=== PATIENT | male | born 1960 | race Caucasian/White ===

== ENCOUNTER 2018-03-29 08:45 | Day surgery (SDC) | END 2018-03-29 14:50 | disposition home or self-care (01) ==

== ENCOUNTER 2018-09-12 10:30 | Inpatient (IN) | payer OTHER ==
[~2018-09-12] VITALS: Ht 182.9 cm; Wt 78.8 kg
[~2018-09-12 10:30] MED LIST: BACLOFEN; CLONAZEPAM
[2018-09-12] MEDS ORDERED: LEVE-5 PO (12:58)
[2018-09-12] MEDS ORDERED: LEVETIRACETAM 1000 MG (PMX) 100 ML IVPB ONE (13:00)
--- NOTE | 2018-09-12 13:02 | ERD ---
ER Documentation Chief Complaint Chief Complaint ABHISHEK LAFLEUR OF [place]. ORAL TRAUMA. NON VERBAL HPI 57-year-old male transferred to the emergency department by paramedics after a loss of consciousness episode. Patient is a poor historian with limited insight into his presentation. According to the paramedics, there was a brief loss of consciousness episode. There is no witnessed seizure activity, but the patient had oral trauma and incontinence. He appeared to be postictal and was transported to the emergency department. There is no history of headache or any other symptoms prior to the event. I have reviewed the drafter chief design pre-hospital care. Pre-hospital vital signs were reviewed. Pre-hospital diagnostic tests were reviewed. Upon arrival, patient is unable to provide any further history. ROS All systems reviewed and are negative except as per history of present illness. 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 EOMI. There is no scleral icterus. Oral trauma is noted NECK: C-spine is soft and supple, there is no meningismus. There is no cervical lymphadenopathy. LUNGS: Clear to auscultation bilaterally. There are no rales, wheezes or rhonchi. HEART: Regular rate and rhythm, no murmurs, clicks, rubs or gallops. ABDOMEN: Soft, non-tender, non-distended. There are bowel sounds in all four quadrants. No rebound or guarding. EXTREMITIES: No edema, cyanosis or clubbing NEURO: Patient is awake but postictal. He is slow to respond with limited insight. Pupils are midrange, equal round and reactive to light. Patient has left upper extremity and lower extremity weakness consistent with a previous stroke that he has had as per his records. SKIN: There is no apparent rash or petechiae. HEME/LYMPHATIC: There is no evidence of excessive bruising or lymphedema. PSYCHIATRIC: The patient does not appear anxious or depressed. Appears postictal Result Diagram: 09/12/18 1055 09/12/18 1055 Results 24 hrs Laboratory Tests Test 09/12/18 10:55 09/12/18 10:57 White Blood Count 10.0 10^3/ul Red Blood Count 5.85 10^6/ul Hemoglobin 18.3 g/dl Hematocrit 55.4 % Mean Corpuscular Volume 94.7 fl Mean Corpuscular Hemoglobin 31.3 pg Mean Corpuscular Hemoglobin Concent 33.0 g/dl Red Cell Distribution Width 12.3 % Platelet Count 270 10^3/UL Mean Platelet Volume 9.4 fl Immature Granulocytes % 0.300 % Neutrophils % 85.3 % Lymphocytes % 7.7 % Monocytes % 6.4 % Eosinophils % 0.1 % Basophils % 0.2 % Nucleated Red Blood Cells % 0.0 /100WBC Immature Granulocytes # 0.030 10^3/ul Neutrophils # 8.6 10^3/ul Lymphocytes # 0.8 10^3/ul Monocytes # 0.6 10^3/ul Eosinophils # 0.0 10^3/ul Basophils # 0.0 10^3/ul Nucleated Red Blood Cells # 0.0 10^3/ul Sodium Level 144 mmol/L Potassium Level 3.8 mmol/L Chloride Level 104 mmol/L Carbon Dioxide Level 26 mmol/L Anion Gap 14 Blood Urea Nitrogen 12 mg/dl Creatinine 0.84 mg/dl Est Glomerular Filtrat Rate mL/min > 60 mL/min Glucose Level 106 mg/dl Calcium Level 10.1 mg/dl Bedside Glucose 98 mg/dL Current Medications Medications Dose Sig/Sophie Start Time Status Last (Trade) Ordered Route PRN Stop Time Admin Dose Reason Admin 100 ml @ ONCE ONCE 09/12/18 Levetiracetam 400 mls/hr IVPB 13:00 09/12/18 13:14 Procedures/MDM Patient was taken to a room, seen and evaluated. Comfort measures were initiated. Diagnostic tests were ordered and reviewed. 3 LEAD RHYTHM STRIP: Normal sinus rhythm without ectopy RADIOLOGY: Reviewed with the radiologist REEVALUATION: 1300: Upon reevaluation, patient is now more awake but with no significant insight. He continues to have his left upper extremity weakness consistent with his previous stroke as per his documentation from his care facility. There are no new neurologic symptoms appreciated. MEDICAL DECISION MAKIN-year-old male presents after what appears to be a seizure. He does have a history of a previous stroke which would be the focus for the seizure. At this time, he appears to be back to his baseline neurologic state with no further seizure activity after an observation time of approximately 1 hour. Overall, patient otherwise appears to be stable with no other indications of other high-risk concerns and seems appropriate for discharge. Departure Diagnosis: Primary Impression: Seizure Condition: Stable Patient Instructions: Seizure, New Onset, Unk Cause [Adult] Additional Instructions: See your doctor for follow-up as discussed. Take a copy of your test results, if appropriate, to this follow-up visit. See your doctor or return here if your symptoms do not improve as expected. At any time, please return to the emergency department for any change or worsening in her symptoms. LAKEISHA ELISE Sep 12, 2018 13:02
[2018-09-12] MEDS ORDERED: ENALAPRILAT 1.25 MG INJ IV ONE (15:00)
[2018-09-12] MEDS ORDERED: LORAZEPAM 2 MG INJ IV ONE (16:00)
[2018-09-12] MEDS ORDERED: SODIUM CHLORIDE 0.9% 1L BAG IV* STA (16:44)
[2018-09-12] MEDS ORDERED: VANCOMYCIN 1 GM (PMX) 250 ML IVPB ONE (17:00)
[2018-09-12] MEDS ORDERED: CEFEPIME 1GM/50 ML (PMX) 50 ML IVPB ONE (17:00)
[2018-09-12] MEDS ORDERED: IBUPROFEN 600 MG TAB PO ONE (17:00)
[2018-09-12] MEDS ORDERED: BACL10TA PO (17:07)
[2018-09-12] MEDS ORDERED: VANCOMYCIN IV PER PHARMACY XX SCH (18:00)
[2018-09-12] MEDS ORDERED: LORAZEPAM 2 MG INJ IV PRN (18:00)
[2018-09-12] MEDS ORDERED: NACL 0.9% 3 ML SYG IV SCH (18:00)
[2018-09-12] MEDS ORDERED: ONDANSETRON 4 MG INJ IV PRN (18:00)
[2018-09-12] MEDS ORDERED: LABETALOL HCL 20MG INJ IV PRN (18:30)
--- NOTE | 2018-09-12 18:30 | HP ---
Date/Time of Note Date/Time of Note DATE: 09/12/18 TIME: 18:30 Assessment/Plan VTE Prophylaxis Pharmacological prophylaxis: other Lines/Catheters IV [facility]from [facility] Saline Lock Assessment/Plan Hospital Course Patient is a male with a past medical history significant for CVA with residual left-sided deficit, Crohn's, being wheelchair-bound who presents to [facility] after being sent by his assisted living facility after being found down, altered, with his tongue cut and mild bleeding from the mouth. Patient originally was assessed by ER physician diagnosed with likely new onset seizure secondary to his prior CVA and was about to be discharged when lactic acid was elevated as well as a fever. Currently patient is not consistent with what the assisted living facility states, according to living facility, patient is alert and oriented and able to take care of himself for the most part, he does have a left-sided deficit but able to we will him self it is wheelchair, it is unknown at this time if the left-sided deficit included a mild left upper arm deficit and not just the leg. Patient denies any history of seizure and he is able to answer some questions somewhat. Patient cannot keep his concentration for quite some time. Patient cannot accurately explain what exactly happened according to assisted living facility staff last known well time was last night. Patient currently denies any chest pain, shortness of breath however HPI is limited as patient is still mildly altered. Objective Physical exam General: Patient is laying in bed and answers questions very slowly and intermittently Mentation: Patient is alert and oriented to self Head: Normocephalic atraumatic Eyes: EOMI, pupils reactive to light Neck: Supple, nontender, midline Respiratory: Clear to auscultation bilaterally Cardiovascular: regular rate, no obvious murmurs Gastrointestinal: non-tender to palpation, bowel sounds heard. Neurological: Left upper extremity is contracted however is easily straightened but returns to the contracted state, left lower extremity has minimal movement but there is some movement in the toes with sensation. Right upper extremity and right lower extremity have full movement and sensation Skin: No new skin lesions, Assessment and plan Acute encephalopathy -The differential is extremely wide as there appears to be limited history, seizure versus CVA versus dehydration versus UTI as UA has not been collected versus other infectious sources -Patient's hemoglobin is consistent with volume contraction, give IV fluids -IV antibiotics broad-spectrum for fever and lactic acid elevation -CT negative for acute CVA, MRI pending -Keppra on board for possible seizure with Ativan as needed, neurology consulted, -Blood cultures pending -UA pending -Drug screen pending -EEG pending Left upper extremity and left lower extremity weakness and contraction of the upper extremity -According to staff at assisted living facility, patient does have a left-sided deficit however it is unknown at this time if the left-sided deficit includes the upper extremity, it is known patient is in wheelchair and is able to we will him self around so doubt left upper extremity contracture is chronic however it may also have a possible chronic nature as patient's only medication from the assisted living facility was baclofen. -We will need to speak with patient more once he is less encephalopathic -CT negative for acute CVA -MRI pending Syncope -Patient found down by staff at living facility,, unknown true downtime -CT negative for acute issues, old CVA, MRI pending -Echocardiogram -Carotid ultrasound Sepsis, unknown source, possible UTI -Broad-spectrum antibiotic -Blood cultures -IV fluids Elevated hemoglobin -Possible volume contraction due to volume depletion -Monitor labs in a.m. Questionable seizure -This may be the culprit however unknown -Neurology consulted -Continue Keppra for now -Patient was not on Keppra at the assisted living facility Disposition -There are many unknown and uncertain questions at this time, will approach everything in a broad fashion and narrow down treatment as more information arises. Monitor closely on telemetry, patient is n.p.o. at this time as his mentation is not completely certain. Result Diagram: 09/12/18 1055 09/12/18 1055 Results 24hrs Laboratory Tests Test 09/12/18 10:55 09/12/18 10:57 09/12/18 17:04 White Blood Count 10.0 Red Blood Count 5.85 Hemoglobin 18.3 H Hematocrit 55.4 H Mean Corpuscular Volume 94.7 Mean Corpuscular Hemoglobin 31.3 Mean Corpuscular Hemoglobin Concent 33.0 Red Cell Distribution Width 12.3 Platelet Count 270 Mean Platelet Volume 9.4 Immature Granulocytes % 0.300 Neutrophils % 85.3 H Lymphocytes % 7.7 L Monocytes % 6.4 Eosinophils % 0.1 Basophils % 0.2 Nucleated Red Blood Cells % 0.0 Immature Granulocytes # 0.030 Neutrophils # 8.6 H Lymphocytes # 0.8 Monocytes # 0.6 Eosinophils # 0.0 Basophils # 0.0 Nucleated Red Blood Cells # 0.0 Sodium Level 144 Potassium Level 3.8 Chloride Level 104 Carbon Dioxide Level 26 Anion Gap 14 H Blood Urea Nitrogen 12 Creatinine 0.84 Est Glomerular Filtrat Rate mL/min > 60 Glucose Level 106 Calcium Level 10.1 Bedside Glucose 98 POC Venous Lactate 2.1 *H HPI/ROS Admit Date/Time Admit Date/Time PMH/Family/Social Past Medical History Medications Current Medications Vancomycin HCl 250 ml @ 125 mls/hr ONCE ONCE IVPB ; Start 09/12/18 at 17:00; Stop 09/12/18 at 18:59 Coded Allergies: Iodine and Iodide Containing Produc (Verified Allergy, Severe, HIVES, RASH, ITCHING, 09/12/18) Social History Smoking Status: Never smoker Exam/Review of Systems Vital Signs Vitals Vital Signs Date Temp Pulse Resp B/P (MAP) Pulse Ox O2 O2 Flow FiO2 Time Delivery Rate 09/12/18 100.7 17:14 09/12/18 102 18 160/96 95 Room Air 16:15 (117) ERIC VELÁZQUEZ Sep 12, 2018 18:30
[2018-09-12 19:09] VITALS: BP 158/82; PULSE 92; RESP 18
[2018-09-12 19:18] VITALS: BP 158/86; PULSE 86; RESP 18
[2018-09-12 19:20] VITALS: Ht 182.9 cm; Wt 78.8 kg
[2018-09-12 20:00] VITALS: BP 141/89; PULSE 86; PULSE 89; RESP 19
[2018-09-12] MEDS ORDERED: VANCOMYCIN 500 MG (PMX) 100 ML IVPB SCH (20:00)
[2018-09-12] MEDS: SOD CHLORIDE 0.9% 1,000 ML IV SCH (20:10)
[2018-09-12] MEDS: ACETAMINOPHEN 325 MG TAB PO PRN (20:11)
[2018-09-12] MEDS: LEVETIRACETAM 1000 MG (PMX) 100 ML IVPB SCH (20:21)
[2018-09-12] MEDS: CEFEPIME 1GM/50 ML (PMX) 50 ML IVPB SCH (20:21)
[2018-09-13] VITALS (13 sets, daily range): BP systolic 110–149; BP diastolic 69–92; PULSE 77–99; RESP 18–22
[2018-09-13] MEDS: SOD CHLORIDE 0.9% 1,000 ML IV SCH ×2 (06:58→21:10)
[2018-09-13] MEDS: CEFEPIME 1GM/50 ML (PMX) 50 ML IVPB SCH (08:05)
[2018-09-13] MEDS ORDERED: VANCOMYCIN HCL 1.25 GM in SOD CHLORIDE 0.9% 250 ML IVPB SCH (09:00)
[2018-09-13] MEDS: LEVETIRACETAM 1000 MG (PMX) 100 ML IVPB SCH (09:11)
--- NOTE | 2018-09-13 11:41 | CONS ---
Assessment/Plan Assessment/Plan Hospital Course 57 yo M with reported Hx of ICH anxiety and other comorbidities who presents for evaluation of ams... for which neurology is consulted. The clinical picture is concerning for seizure...his first of life... MRI brain is notable for R frontal lobe encephalomalacia... a likely epileptogenic focus. UDS + cocaine P: Await EEG to further evaluate for epileptiform activity Start Trileptal for seizure ppx. Hold Keppra for now, as it can exacerbate underlying psychiatric comorbidities Ativan IV PRN seizure > 5 min or for cluster Cont other medical management per primary Will follow clinically Consultation Date/Type/Reason Admit Date/Time Type of Consult Neurology Reason for Consultation seizures Requesting Provider: ERIC VELÁZQUEZ Date/Time of Note DATE: 09/13/18 TIME: 11:41 Hx of Present Illness The pt is unable to contribute a thorough hx. He notes taking klonopin daily at night for sleeping. He denies a hx of seizures. It is additionally elsewhere noted: Hospital Course Patient is a male with a past medical history significant for CVA with residual left-sided deficit, Crohn's, being wheelchair-bound who presents to [facility] after being sent by his assisted living facility after being found down, altered, with his tongue cut and mild bleeding from the mouth. Patient originally was assessed by ER physician diagnosed with likely new onset seizure secondary to his prior CVA and was about to be discharged when lactic acid was elevated as well as a fever. Currently patient is not consis tent with what the assisted living facility states, according to living facility, patient is alert and oriented and able to take care of himself for the most part, he does have a left-sided deficit but able to we will him self it is wheelchair, it is unknown at this time if the left-sided deficit included a mild left upper arm deficit and not just the leg. Patient denies any history of seizure and he is able to answer some questions somewhat. Patient cannot keep his concentration for quite some time. Patient cannot accurately explain what exactly happened according to assisted living facility staff last known well time was last night. Patient currently denies any chest pain, shortness of breath however HPI is limited as patient is still mildly altered. negative unless noted otherwise in HPI Exam/Review of Systems Exam Vitals Vital Signs Date Temp Pulse Resp B/P (MAP) Pulse Ox O2 O2 Flow FiO2 Time Delivery Rate 09/13/18 99 08:10 09/13/18 97.6 18 118/71 94 Room Air 07:32 (87) Intake and Output 09/12/18 09/12/18 09/13/18 1515:00 23:00 07:00 IntakeIntake Total 100 ml 2050 ml 120 ml OutputOutput Total 500 ml BalanceBalance 100 ml 2050 ml -380 ml Exam PE: Gen Appearance: No Apparent Distress HEENT: Normocephalic Cardiovascular: Regular rate Lungs: Clear bilaterally Abdomen: Soft Extremities: Dry NE: The patient was alert and grossly oriented. Language was dysarthric. Fund of knowledge was normal. Attention span limited. Pupils were equal and reactive to light. There was no afferent pupillary defect. Visual zepeda were normal. Funduscopic examination was limited. Extra-ocular movements were full. Ptosis was absent. There was no nystagmus. Facial sensation was normal. Face was symmetric with normal strength. Hearing was intact. Palate movements were normal. Neck strength was normal. Tongue was swollen, though had a normal speed of movement. Tone was normal. Muscle bulk was normal. I did not see fasciculations. Arms and legs were weak on the L. Vibration sensation was normal. Temperature and pinprick sensation was normal. Rapid alternating movements were normal. There was no dysmetria. There was no intention tremor. Gait was deferred due to bedrest. Arm and leg reflexes were 2+ and symmetric. Adamson's sign was absent. Plantar responses were flexor. Results Result Diagram: 09/13/18 0548 09/13/18 0548 Results 24hrs Laboratory Tests Test 09/12/18 17:04 09/12/18 17:06 09/12/18 19:45 09/12/18 22:13 POC Venous 2.1 *H Lactate Urine Color YELLOW Urine Clarity SLIGHTLY CLOUDY A Urine pH 5.0 Urine Specific 1.017 [place] Urine Ketones 2+ H Urine Nitrite NEGATIVE Urine Bilirubin NEGATIVE Urine NEGATIVE Urobilinogen Urine Leukocyte NEGATIVE Esterase Urine Microscopic > 182 H RBC Urine Microscopic 5 WBC Urine Mucus FEW A Urine Hemoglobin 3+ H Urine Glucose NEGATIVE Urine Total 1+ H Protein Urine Opiates Negative Screen Urine Negative Barbiturates Urine Negative Amphetamines Screen Urine Negative Benzodiazepines Screen Urine Cocaine Positive Screen Urine Negative Cannabinoids Prothrombin Time 13.3 Prothrombin Time 1.0 Ratio INR International 1.00 Normalized Ratio Activated 28.2 Partial Thrombopl ast Time Sodium Level 141 Potassium Level 4.5 Chloride Level 104 Carbon Dioxide 25 Level Anion Gap 12 Blood Urea 11 Nitrogen Creatinine 0.80 Est Glomerular > 60 Filtrat Rate mL/min Glucose Level 106 Lactic Acid Level 1.6 0.9 Calcium Level 9.3 Total Bilirubin 0.5 Direct Bilirubin 0.00 Indirect 0.5 Bilirubin Aspartate Amino 20 Transf (AST/SGOT) Alanine 16 Aminotransferase (ALT/SGPT) Alkaline 159 H Phosphatase C-Reactive 1.4 H Protein Total Protein 7.8 Albumin 4.3 Globulin 3.50 H Albumin/Globulin 1.22 Ratio Lipase 232 Test 09/13/18 05:48 White Blood Count 7.2 # Red Blood Count 4.64 #L Hemoglobin 14.6 # Hematocrit 44.4 Mean Corpuscular 95.7 Volume Mean Corpuscular 31.5 Hemoglobin Mean Corpuscular 32.9 Hemoglobin Concen t Red Cell 12.5 Distribution Width Platelet Count 220 Mean Platelet 9.6 Volume Immature 0.300 Granulocytes % Neutrophils % 68.5 Lymphocytes % 19.3 Monocytes % 11.2 H Eosinophils % 0.3 Basophils % 0.4 Nucleated Red 0.0 Blood Cells % Immature 0.020 Granulocytes # Neutrophils # 4.9 Lymphocytes # 1.4 Monocytes # 0.8 Eosinophils # 0.0 Basophils # 0.0 Nucleated Red 0.0 Blood Cells # Sodium Level 140 Potassium Level 4.0 Chloride Level 105 Carbon Dioxide 27 Level Anion Gap 8 Blood Urea 13 Nitrogen Creatinine 0.76 Est Glomerular > 60 Filtrat Rate mL/min Glucose Level 88 Hemoglobin A1c 5.0 Calcium Level 8.8 Magnesium Level 2.2 Total Bilirubin 0.8 Direct Bilirubin 0.00 Indirect 0.8 Bilirubin Aspartate Amino 18 Transf (AST/SGOT) Alanine 17 Aminotransferase (ALT/SGPT) Alkaline 131 H Phosphatase Total Protein 6.6 # Albumin 3.6 Globulin 3.00 Albumin/Globulin 1.20 Ratio Triglycerides 91 Level Cholesterol Level 93 L LDL Cholesterol, 40 Calculated HDL Cholesterol 35 Cholesterol/HDL 2.6 Ratio Thyroid 0.146 L Stimulating Hormone (TSH) Medications Medication Current Medications Sodium Chloride 1,000 ml @ 75 mls/hr [id number] IV Last administered on 09/12/18at 20:10; Admin Dose 75 MLS/HR; Start 09/12/18 at 17:38 IV Flush (NS 3 ml) 3 ml PER PROTOCOL IV ; Start 09/12/18 at 18:00 Lorazepam (Ativan) 2 mg Q10MIN PRN IV seizure Last administered on 09/12/18at 20:45; Admin Dose 2 MG; Start 09/12/18 at 18:00 Ondansetron HCl (Zofran Inj) 4 mg Q6H PRN IV NAUSEA/VOMITING; Start 09/12/18 at 18:00 Acetaminophen (Tylenol Tab) 650 mg Q6H PRN PO .PAIN 1-3 OR TEMP Last administered on 09/12/18at 20:11; Admin Dose 650 MG; Start 09/12/18 at 18:00 Cefepime HCl 50 ml @ 100 mls/hr Q12 IVPB Last administered on 09/13/18at 08:05; Admin Dose 100 MLS/HR; Start 09/12/18 at 21:00 Vancomycin HCl (Vanco Iv Per Pharmacy) VANCOMYCIN PER PHARMACY PER PROTOCOL XX ; Start 09/12/18 at 18:00 Levetiracetam 100 ml @ 400 mls/hr Q12 IVPB Last administered on 09/13/18at 09:11; Admin Dose 400 MLS/HR; Start 09/12/18 at 21:00 Labetalol HCl (Labetalol) 10 mg Q4H PRN IV sbp >160; Start 09/12/18 at 18:30 Vancomycin HCl 1.25 gm/Sodium Chloride 250 ml @ 83.333 mls/ hr Q12H IVPB Last administered on 09/13/18 08:05; Admin Dose 83.333 MLS/HR; Start 09/13/18 at 09:00 Past Medical History reviewed Home Meds Active Scripts Levetiracetam* (Keppra*) 500 Mg Tablet, 500 MG PO BID, #30 TAB Prov:LAKEISHA ELISE 09/12/18 Reported Medications Baclofen* (Baclofen*) 10 Mg Tablet, 10 MG PO TID, TAB 09/12/18 Discontinued Reported Medications [Clonazepam] No Conflict Check 03/29/18 [Baclofen] No Conflict Check 03/29/18 Medications Current Medications Sodium Chloride 1,000 ml @ 75 mls/hr [id number] IV Last administered on 09/12/18at 20:10; Admin Dose 75 MLS/HR; Start 09/12/18 at 17:38 IV Flush (NS 3 ml) 3 ml PER PROTOCOL IV ; Start 09/12/18 at 18:00 Lorazepam (Ativan) 2 mg Q10MIN PRN IV seizure Last administered on 09/12/18at 20 :45; Admin Dose 2 MG; Start 09/12/18 at 18:00 Ondansetron HCl (Zofran Inj) 4 mg Q6H PRN IV NAUSEA/VOMITING; Start 09/12/18 at 18:00 Acetaminophen (Tylenol Tab) 650 mg Q6H PRN PO .PAIN 1-3 OR TEMP Last administered on 09/12/18at 20:11; Admin Dose 650 MG; Start 09/12/18 at 18:00 Cefepime HCl 50 ml @ 100 mls/hr Q12 IVPB Last administered on 09/13/18at 08:05; Admin Dose 100 MLS/HR; Start 09/12/18 at 21:00 Vancomycin HCl (Vanco Iv Per Pharmacy) VANCOMYCIN PER PHARMACY PER PROTOCOL XX ; Start 09/12/18 at 18:00 Levetiracetam 100 ml @ 400 mls/hr Q12 IVPB Last administered on 09/13/18at 09:11; Admin Dose 400 MLS/HR; Start 09/12/18 at 21:00 Labetalol HCl (Labetalol) 10 mg Q4H PRN IV sbp >160; Start 09/12/18 at 18:30 Vancomycin HCl 1.25 gm/Sodium Chloride 250 ml @ 83.333 mls/ hr Q12H IVPB Last administered on 09/13/18at 08:05; Admin Dose 83.333 MLS/HR; Start 09/13/18 at 09:00 Allergies: Coded Allergies: Iodine and Iodide Containing Produc (Verified Allergy, Severe, HIVES, RASH, ITCHING, 09/12/18) Past Surgical History reviewed Social History reviewed Smoking Status: Never smoker TAWANNA PEREA NP Sep 13, 2018 11:41 WILFRED MARTINEZ Sep 13, 2018 14:11
[2018-09-13] MEDS ORDERED: LORAZEPAM 1 MG TAB PO PRN (12:30)
--- NOTE | 2018-09-13 16:38 | PN ---
Date/Time of Note Date/Time of Note DATE: 09/13/18 TIME: 16:26 Objective Vitals Vital Signs Date Temp Pulse Resp B/P (MAP) Pulse Ox O2 O2 Flow FiO2 Time Delivery Rate 09/13/18 84 16:05 09/13/18 98.6 22 149/92 96 Room Air 15:47 (111) Intake and Output 09/12/18 09/12/18 09/13/18 1515:00 23:00 07:00 IntakeIntake Total 100 ml 2050 ml 120 ml OutputOutput Total 500 ml BalanceBalance 100 ml 2050 ml -380 ml Results Result Diagram: 09/13/18 0548 09/13/18 0548 Medications Medications Current Medications Sodium Chloride 1,000 ml @ 75 mls/hr [id number] IV Last administered on 09/12/18 20:10; Admin Dose 75 MLS/HR; Start 09/12/18 at 17:38 IV Flush (NS 3 ml) 3 ml PER PROTOCOL IV ; Start 09/12/18 at 18:00 Lorazepam (Ativan) 2 mg Q10MIN PRN IV seizure Last administered on 09/12/18at 20:45; Admin Dose 2 MG; Start 09/12/18 at 18:00 Ondansetron HCl (Zofran Inj) 4 mg Q6H PRN IV NAUSEA/VOMITING; Start 09/12/18 at 18:00 Acetaminophen (Tylenol Tab) 650 mg Q6H PRN PO .PAIN 1-3 OR TEMP Last administered on 09/12/18at 20:11; Admin Dose 650 MG; Start 09/12/18 at 18:00 Cefepime HCl 50 ml @ 100 mls/hr Q12 IVPB Last administered on 09/13/18 08:05; Admin Dose 100 MLS/HR; Start 09/12/18 at 21:00 Vancomycin HCl (Vanco Iv Per Pharmacy) VANCOMYCIN PER PHARMACY PER PROTOCOL XX ; Start 09/12/18 at 18:00 Labetalol HCl (Labetalol) 10 mg Q4H PRN IV sbp >160; Start 09/12/18 at 18:30 Vancomycin HCl 1.25 gm/Sodium Chloride 250 ml @ 83.333 mls/ hr Q12H IVPB Last administered on 09/13/18 08:05; Admin Dose 83.333 MLS/HR; Start 09/13/18 at 09:00 Lorazepam (Ativan) 1 mg Q6 PRN PO AGITATION; Start 09/13/18 at 12:30 Oxcarbazepine (Trileptal) 300 mg BID PO ; Start 09/13/18 at 21:00 Miscellaneous Information (*Rx Drug Level Order Reminder*) VANCO TROUGH ON 09/03... 0800 ONCE XX ; Start 09/14/18 at 08:00; Stop 09/14/18 at 08:01 VTE Prophylaxis Risk score (from Ns)>0 risk: 3 SCD applied (from [facility] [place] Yes Lines/Catheters IV Catheter Type: De Paz in Place: No Assessment/Plan Hospital Course Subjective Patient states he feels back at baseline, wants to go back home, however explained to patient that we need to find out why he had fever and was found down on the ground. Subsequently a few hours after patient had a verbal argument with his roommate and spit on roommate. Objective Physical exam General: Patient is laying in bed and answers questions with mild speech impediment Mentation: Patient is alert and oriented Head: Normocephalic atraumatic Eyes: EOMI, pupils reactive to light Neck: Supple, nontender, midline Respiratory: Clear to auscultation bilaterally Cardiovascular: regular rate, no obvious murmurs Gastrointestinal: non-tender to palpation, bowel sounds heard. Neurological: Left upper extremity is contracted however is easily straightened but returns to the contracted state, left lower extremity has minimal movement but there is some movement in the toes with sensation. Right upper extremity and right lower extremity have full movement and sensation Skin: No new skin lesions, Assessment and plan Acute encephalopathy, resolved -The differential is extremely wide as there appears to be limited history, seizure versus CVA versus dehydration versus other infectious sources, however at this time it may be likely due to seizure -Patient is cocaine positive -Patient was volume depleted on admission -IV antibiotics broad-spectrum, however will change to p.o. 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 SIRS -Broad-spectrum antibiotic now changed to oral Levaquin for sinusitis -Blood cultures -IV fluids stopped Sinusitis -Oral Levaquin Elevated hemoglobin -Likely volume contraction due to volume depletion -Monitor labs in a.m. Disposition -Appears possible seizure causing above encephalopathy, workup continuing, DC back to assisted living when stable. ERIC VELÁZQUEZ Sep 13, 2018 16:38
[2018-09-13] MEDS ORDERED: CARBAMAZEPINE 200 MG TAB PO SCH (21:00)
[2018-09-13] MEDS: OXCARBAZEPINE 300 MG TAB PO SCH (21:06)
--- NOTE | 2018-09-13 21:47 | RADRPT ---
Echocardiogram Report Patient Name: MELINDA RICHatient ID: [id number] : 1960 ([id number] )Study Date: 09/13/2018 7:44:55 AM Gender: MAccession #: [id number] Tech: MaryTerese Storm [facility] Location: [facility] Ref.Physician: ERIC VELÁZQUEZ Height(Cm): BSA: Weight(Kg): Quality: AdequateAccount #: Procedures: Echocardiographic Report: Transthoracic echocardiogram with complete 2D, M-Mode, and doppler examination. Indications: Syncope. Measurements: 2D/M Mode Doppler Measurement Value Normal Range Measurement Value Normal Range LVIDd 2D 4.4 [ 4.2 - 5.8 ] cm AV Peak James 1.1 [ 100.0 - 170.0 ] cm/sec LVIDs 2D 3.1 [ 2.5 - 4.0 ] cm AV Peak PG 5.0 [ 2.0 - 9.0 ] mmHg LVPWd 2D 1.2 [ 0.6 - 1.0 ] cm LVOT Peak James 0.8 [ 70.0 - 110.0 ] cm/sec IVSd 2D 1.3 [ 0.6 - 1.0 ] cm LVOT Peak PG 3.0 [ 2.0 - 6.0 ] mmHg AoR Diam 2D 2.8 [ 2.6 - 3.4 ] cm MV E Peak James 0.8 [ 60.0 - 130.0 ] cm/sec EDV 2D 86.3 [ 62.0 - 150.0 ] ml MV A Peak James 0.6 [ 100.0 - 120.0 ] cm/sec ESV 2D 37.0 [ 21.0 - 61.0 ] ml MV E/A 1.3 [ 0.8 - 1.5 ] ratio EF 2D 57.1 [ 52.0 - 72.0 ] percent MV Decel Time 144 [ 104 - 258 ] msec LA Dimen 2D 3.4 [ 3.0 - 4.0 ] cm Lat E` James 0.1 [ 10.0 - 15.0 ] cm/sec Lateral E/E` 7.6 [ 1.0 - 2.0 ] ratio Med E` James 0.1 cm/sec MV E/A 1.3 [ 0.8 - 1.5 ] ratio TR Peak James 2.3 [ 100.0 - 280.0 ] cm/sec TR Peak PG 22.0 mmHg RVSP 25.0 [ 10.0 - 36.0 ] mmHg RA Pressure 3.0 mmHg Findings: Left Ventricle: Normal left ventricular systolic function. Normal left ventricular cavity size. Mild concentric left ventricular hypertrophy. Ejection fraction is visually estimated at 60-65 %. Tissue Doppler/Mitral Doppler indices are within normal limits. Right Ventricle: Normal right ventricular size. Normal right ventricular systolic function. Left Atrium: The left atrium is normal in size. Right Atrium: The right atrium is normal in size. Mitral Valve: Normal appearance and function of the mitral valve with trace physiologic regurgitation. Aortic Valve: Normal appearance of the aortic valve. No significant aortic stenosis or insufficiency. Tricuspid Valve: Normal appearance of the tricuspid valve. Estimated peak PA systolic pressure 25 mmHg. There is trace tricuspid regurgitation. Pulmonic Valve: Pulmonic valve not well visualized. Pericardium: Normal pericardium with no significant pericardial effusion. Aorta: Normal aortic root. IVC: Normal size and normal respiratory collapse consistent with normal right atrial pressure. Conclusions: Normal left ventricular systolic function. Normal left ventricular cavity size. Mild concentric left ventricular hypertrophy. Ejection fraction is visually estimated at 60-65 %. Tissue Doppler/Mitral Doppler indices are within normal limits. Normal appearance and function of the mitral valve with trace physiologic regurgitation. Normal appearance of the tricuspid valve. Estimated peak PA systolic pressure 25 mmHg. There is trace tricuspid regurgitation. Electronically Signed By: Oscar Montoya 2018-09-13 21:47:04 PDT
[2018-09-13] MEDS: ACETAMINOPHEN 325 MG TAB PO PRN (23:27)
[2018-09-14] VITALS (11 sets, daily range): BP systolic 132–161; BP diastolic 72–94; PULSE 67–115; RESP 18–22
[2018-09-14] MEDS: LEVOFLOXACIN 500 MG TAB PO SCH (06:08)
[2018-09-14] MEDS: OXCARBAZEPINE 300 MG TAB PO SCH ×2 (08:53→20:29)
[2018-09-14] MEDS: SOD CHLORIDE 0.9% 1,000 ML IV SCH (08:53)
[2018-09-14] MEDS ORDERED: clonAZEPAM 0.5 MG TAB PO PRN (10:30)
--- NOTE | 2018-09-14 11:47 | PSY ---
Date/Time of Note Date/Time of Note DATE: 09/14/18 TIME: 11:39 Psychiatric Subjective Eval Consent Pt consented to telemedicine: No Subjective Evaluation Patient location: inpatient Chief Complaint: BIB RA EVAL OF ALOC. ORAL TRAUMA. NON VERBAL History of present illness Patient is a male with a past medical history for CVA , Crohn's, found down with altered level of consciousness and with bleeding from the mouth. On a [id number] evaluation, patient states he was angry at the at his roommates, because the roommate was threatening him intrusive and urinary irritable and invading his personal space.. Patient states he was not able to to strike out bed decided to spit on his roommates as a way of getting back at him. Patient is remorseful states he would not have done that, but he was provoked into doing that he denies suicidal thoughts, denies feeling of hopelessness, denies homicidal thoughts and contracted for safety. Discussed risk and benefits of antipsychotic to help patients with acute agitation however patient declined and states he goes for counseling and will not will come any antipsychotic. Patient currently takes anxiety medications and states he is fine with that. Past psychiatric history Admits is been treated with counseling Hospitalization: other Medical history Problems Medical Problems: (1) Seizure Status: Acute Allergies: Coded Allergies: Iodine and Iodide Containing Produc (Verified Allergy, Severe, HIVES, RASH, ITCHING, 09/12/18) Substance Abuse Substance abuse history: No Prior substance abuse treatmen: No Social History Marital status: other DPA/Conservatorship: No Psychiatric Objective Eval Review of Systems: Review of Systems: Not Applicable Physical Examination: Sleep: Insomnia, Adequate Appetite: Adequate Energy: Adequate Interest: Adequate Mental Status Examination: Appearance: Poor Hygiene Eye Contact: Fair Psychomotor Activity: Normal Behavior: Cooperative Speech: Clear AFFECT: Appropriate Mood: Appropriate/Full Though Process: Linear Orientation: x4 Cognition: Alert Insight: Mild Judgement: Mild Attention Span: Distractible Laboratory Results Laboratory Tests Test 09/12/18 17:04 09/12/18 17:06 09/12/18 19:45 09/12/18 22:13 POC Venous 2.1 mmol/L Lactate Urine Color YELLOW Urine Clarity SLIGHTLY CLOUDY Urine pH 5.0 Urine Specific 1.017 H[place]orne Urine Ketones 2+ mg/dL Urine Nitrite NEGATIVE mg/dL Urine Bilirubin NEGATIVE mg/dL Urine NEGATIVE mg/dL Urobilinogen Urine Leukocyte NEGATIVE Mabel/ul Esterase Urine Microscopic > 182 /HPF RBC Urine Microscopic 5 /HPF WBC Urine Mucus FEW /HPF Urine Hemoglobin 3+ mg/dL Urine Glucose NEGATIVE mg/dL Urine Total 1+ mg/dl Protein Urine Opiates Negative Screen Urine Negative Barbiturates Urine Negative Amphetamines Screen Urine Negative Benzodiazepines Screen Urine Cocaine Positive Screen Urine Negative Cannabinoids Prothrombin Time 13.3 Sec Prothrombin Time 1.0 Ratio INR International 1.00 Normalized Ratio Activated 28.2 Sec Partial Thrombopl ast Time Sodium Level 141 mmol/L Potassium Level 4.5 mmol/L Chloride Level 104 mmol/L Carbon Dioxide 25 mmol/L Level Anion Gap 12 Blood Urea 11 mg/dl Nitrogen Creatinine 0.80 mg/dl Est Glomerular > 60 mL/min Filtrat Rate mL/min Glucose Level 106 mg/dl Lactic Acid Level 1.6 mmol/L 0.9 mmol/L Calcium Level 9.3 mg/dl Total Bilirubin 0.5 mg/dl Direct Bilirubin 0.00 mg/dl Indirect 0.5 mg/dl Bilirubin Aspartate Amino 20 IU/L Transf (AST/SGOT) Alanine 16 IU/L Aminotransferase (ALT/SGPT) Alkaline 159 IU/L Phosphatase C-Reactive 1.4 mg/dl Protein Total Protein 7.8 g/dl Albumin 4.3 g/dl Globulin 3.50 g/dl Albumin/Globulin 1.22 Ratio Lipase 232 U/L Test 09/13/18 05:46 09/13/18 05:48 09/14/18 09:53 Free Thyroxine 0.84 ng/dl White Blood Count 7.2 10^3/ul 7.2 10^3/ul Red Blood Count 4.64 10^6/ul 5.10 10^6/ul Hemoglobin 14.6 g/dl 16.3 g/dl Hematocrit 44.4 % 47.7 % Mean Corpuscular 95.7 fl 93.5 fl Volume Mean Corpuscular 31.5 pg 32.0 pg Hemoglobin Mean Corpuscular 32.9 g/dl 34.2 g/dl Hemoglobin Concen t Red Cell 12.5 % 11.9 % Distribution Width Platelet Count 220 10^3/UL 254 10^3/UL Mean Platelet 9.6 fl 9.3 fl Volume Immature 0.300 % 0.300 % Granulocytes % Neutrophils % 68.5 % 81.5 % Lymphocytes % 19.3 % 10.8 % Monocytes % 11.2 % 6.8 % Eosinophils % 0.3 % 0.3 % Basophils % 0.4 % 0.3 % Nucleated Red 0.0 /100WBC 0.0 /100WBC Blood Cells % Immature 0.020 10^3/ul 0.020 10^3/ul Granulocytes # Neutrophils # 4.9 10^3/ul 5.8 10^3/ul Lymphocytes # 1.4 10^3/ul 0.8 10^3/ul Monocytes # 0.8 10^3/ul 0.5 10^3/ul Eosinophils # 0.0 10^3/ul 0.0 10^3/ul Basophils # 0.0 10^3/ul 0.0 10^3/ul Nucleated Red 0.0 10^3/ul 0.0 10^3/ul Blood Cells # Sodium Level 140 mmol/L 142 mmol/L Potassium Level 4.0 mmol/L 4.1 mmol/L Chloride Level 105 mmol/L 103 mmol/L Carbon Dioxide 27 mmol/L 28 mmol/L Level Anion Gap 8 11 Blood Urea 13 mg/dl 8 mg/dl Nitrogen Creatinine 0.76 mg/dl 0.66 mg/dl Est Glomerular > 60 mL/min > 60 mL/min Filtrat Rate mL/min Glucose Level 88 mg/dl 108 mg/dl Hemoglobin A1c 5.0 % Calcium Level 8.8 mg/dl 9.5 mg/dl Magnesium Level 2.2 mg/dl 2.0 mg/dl Total Bilirubin 0.8 mg/dl Direct Bilirubin 0.00 mg/dl Indirect 0.8 mg/dl Bilirubin Aspartate Amino 18 IU/L Transf (AST/SGOT) Alanine 17 IU/L Aminotransferase (ALT/SGPT) Alkaline 131 IU/L Phosphatase Total Protein 6.6 g/dl Albumin 3.6 g/dl Globulin 3.00 g/dl Albumin/Globulin 1.20 Ratio Triglycerides 91 mg/dl Level Cholesterol Level 93 mg/dl LDL Cholesterol, 40 mg/dl Calculated HDL Cholesterol 35 mg/dl Cholesterol/HDL 2.6 RATIO Ratio Thyroid 0.146 MIU/L Stimulating Hormone (TSH) Phosphorus Level 2.4 mg/dl Creatine Kinase 106 IU/L Assessment and Plan Assessment/Diagnosis Diagnosis Anxiety disorder Recommendation/Plan Medication Management Continue on current medications Multiple antipsychotics: No Discharge Disposition: Other Legal Status: Voluntary (Patient does not meet criteria for 5150 hold) ONYEKWE,KAROLINA R SITE SUPERINTENDENT Sep 14, 2018 11:47
--- NOTE | 2018-09-14 12:15 | CONS ---
Assessment/Plan Assessment/Plan Hospital Course 57 yo M with reported Hx of ICH anxiety and other comorbidities who presents for evaluation of ams... for which neurology is consulted. The clinical picture is concerning for seizure...his first of life... MRI brain is notable for R frontal lobe encephalomalacia... a likely epileptogenic focus. EEG was without ongoing epileptiform activity.. UDS + cocaine P: Cont Trileptal for seizure ppx. Hold Keppra, as it can exacerbate underlying psychiatric comorbidities Ativan IV PRN seizure > 5 min or for cluster Cont other medical management per primary Neurologically cleared for d/c, when medically able Consultation Date/Type/Reason Admit Date/Time Sep 12, 2018 at 17:41 Type of Consult Neurology Reason for Consultation seizures Requesting Provider: ERIC VELÁZQUEZ Date/Time of Note DATE: 09/14/18 TIME: 12:15 24 HR Interval Summary Free Text/Dictation Continues acute care. Exam Vital Signs Vitals Vital Signs Date Temp Pulse Resp B/P (MAP) Pulse Ox O2 O2 Flow FiO2 Time Delivery Rate 09/14/18 95 12:07 09/14/18 98.6 22 144/82 Room Air 07:21 (102) 09/14/18 99 03:53 Intake and Output 09/13/18 09/13/18 09/14/18 1515:00 23:00 07:00 IntakeIntake Total 400 ml 1880 ml 1500 ml OutputOutput Total 1500 ml 1300 ml BalanceBalance 400 ml 380 ml 200 ml Exam PE: Gen Appearance: No Apparent Distress HEENT: Normocephalic Cardiovascular: Regular rate Lungs: Clear bilaterally Abdomen: Soft Extremities: Dry NE: The patient was alert and grossly oriented. Language was dysarthric. Fund of knowledge was normal. Attention span limited. Pupils were equal and reactive to light. There was no afferent pupillary defect. Visual zepeda were normal. Funduscopic examination was limited. Extra-ocular movements were full. Ptosis was absent. There was no nystagmus. Facial sensation was normal. Face was symmetric with normal strength. Hearing was intact. Palate movements were normal. Neck strength was normal. Tongue was swollen, though had a normal speed of movement. Tone was normal. Muscle bulk was normal. I did not see fasciculations. Arms and legs were weak on the L. Vibration sensation was normal. Temperature and pinprick sensation was normal. Rapid alternating movements were normal. There was no dysmetria. There was no intention tremor. Gait was deferred due to bedrest. Arm and leg reflexes were 2+ and symmetric. Adamson's sign was absent. Plantar responses were flexor. TAWANNA PEREA NP Sep 14, 2018 12:15 WILFRED MARTINEZ Sep 14, 2018 15:26
--- NOTE | 2018-09-14 12:31 | PN ---
Date/Time of Note Date/Time of Note DATE: 09/14/18 TIME: 12:27 Objective Vitals Vital Signs Date Temp Pulse Resp B/P (MAP) Pulse Ox O2 O2 Flow FiO2 Time Delivery Rate 09/14/18 95 12:07 09/14/18 98.6 22 144/82 Room Air 07:21 (102) 09/14/18 99 03:53 Intake and Output 09/13/18 09/13/18 09/14/18 1515:00 23:00 07:00 IntakeIntake Total 400 ml 1880 ml 1500 ml OutputOutput Total 1500 ml 1300 ml BalanceBalance 400 ml 380 ml 200 ml Results Result Diagram: 09/14/1895209/14/18952 Medications Medications Current Medications IV Flush (NS 3 ml) 3 ml PER PROTOCOL IV ; Start 09/12/18 at 18:00 Lorazepam (Ativan) 2 mg Q10MIN PRN IV seizure Last administered on 09/12/18at 20:45; Admin Dose 2 MG; Start 09/12/18 at 18:00 Ondansetron HCl (Zofran Inj) 4 mg Q6H PRN IV NAUSEA/VOMITING; Start 09/12/18 at 18:00 Acetaminophen (Tylenol Tab) 650 mg Q6H PRN PO .PAIN 1-3 OR TEMP Last administered on 09/13/18at 23:27; Admin Dose 650 MG; Start 09/12/18 at 18:00 Labetalol HCl (Labetalol) 10 mg Q4H PRN IV sbp >160; Start 09/12/18 at 18:30 Oxcarbazepine (Trileptal) 300 mg BID PO Last administered on 09/14/18at 08:53; Admin Dose 300 MG; Start 09/13/18 at 21:00 Levofloxacin (Levaquin) 500 mg DAILY@06 PO Last administered on 09/14/18at 06:08; Admin Dose 500 MG; Start 09/14/18 at 06:00 Mesalamine (Delzicol Dr) 400 mg QID PO ; Start 09/14/18 at 13:00 Clonazepam (Klonopin) 2 mg QHS PRN PO anxiety/insomenia; Start 09/14/18 at 10:30 VTE Prophylaxis Risk score (from Nsg)>0 risk: 3 SCD applied (from Nsg): Yes Lines/Catheters IV Catheter Type: De Paz in Place: No Assessment/Plan Hospital Course Subjective Patient doing well, no acute change from baseline, no seizure episodes Objective Physical exam General: Patient is laying in bed and answers questions with mild speech imp ediment Mentation: Patient is alert and oriented Head: Normocephalic atraumatic is some 25 Eyes: EOMI, pupils reactive to light Neck: Supple, nontender, midline Respiratory: Clear to auscultation bilaterally Cardiovascular: regular rate, no obvious murmurs Gastrointestinal: non-tender to palpation, bowel sounds heard. Neurological: Left upper extremity is contracted however is easily straightened but returns to the contracted state, left lower extremity has fairly good mobility except for his left foot which is chronically curved. Right upper extremity and right lower extremity have full movement and sensation Skin: No new skin lesions, Assessment and plan Acute encephalopathy, resolved -The differential is extremely wide as there appears to be limited history, seizure versus CVA versus dehydration versus other infectious sources, however at this time it may be likely due to seizure -Patient is cocaine positive -Patient was volume depleted on admission -IV antibiotics broad-spectrum, however will change to p.o. now, since true systemic infectious cause is less likely, patient does have sinusitis seen on MRI -CT negative for acute CVA, MRI noted -Neurology started Trileptal for seizure precautions -Blood cultures pending -UA negative -Drug screen positive for cocaine -EEG noted History of bleeding per the per patient -MRI results consistent with old brain bleed Left upper extremity and left foot weakness and contraction of the upper extremity -Baseline per patient, patient uses a special shoe to straighten out his left foot and uses a four-point cane to ambulate, also has a wheelchair. -Monitor Insomnia -Patient takes Klonopin to go to sleep, as needed Klonopin Syncope, likely due to above seizure -Patient found down by staff at living facility,, unknown true downtime -CT negative for acute issues, old CVA, MRI noted -Echocardiogram pending -Carotid ultrasound noted Mood disorder -Linda andrea was called today, patient had argument with roommate, psych consult pending, no history in chart of mood disorder however patient likely has some sort of mood dysfunction. SIRS -Broad-spectrum antibiotic now changed to oral Levaquin for sinusitis -Blood cultures -IV fluids stopped Sinusitis -Oral Levaquin Elevated hemoglobin -Likely volume contraction due to volume depletion -Monitor labs in a.m. Crohn's disease -Patient follows up with outpatient GI, continue mesalamine Disposition -Monitor patient if patient is stable tomorrow, will arrange transportation back to his assisted living. ERIC VELÁZQUEZ Sep 14, 2018 12:31
[2018-09-14] MEDS: MESALAMINE (EC) 400 MG CAP PO SCH ×3 (13:08→20:29)
--- NOTE | 2018-09-14 15:19 | EEG ---
EEG NOTE Report Details DATE OF TEST: 09/13/18 HISTORY: The patient is a 57-year-old M who presents with altered mental status. This EEG is requested to evaluate for an epileptic disorder. SEDATION: None. CONDITIONS OF RECORDING: This EEG was recorded digitally on the [employer] machine, using the International 10-20 System of electrodes plus anterior temporals and Nz. STATES SAMPLED: Wakefulness and drowsiness. FINDINGS: During wakefulness, there is a 8 Hz posterior dominant rhythm, which attenuates normally with eye opening. There is a normal [id number] frequency-amplitude gradient. The remainder of the awake background is notable for admixed theta and delta activity. Photic stimulation does not elicit any definite driving responses or epileptiform discharges. Hyperventilation was not performed. The patient became drowsy but did not pass into sleep. No asymmetries, focal abnormalities or epileptiform discharges were seen. IMPRESSION: Abnormal electroencephalogram due to: mild diffuse slowing. COMMENT: The slowing of the background indicates mild, diffuse cortical dysfunction of nonspecific etiology. WILFRED MARTINEZ Sep 14, 2018 15:19
[2018-09-15] VITALS: PULSE 69
[2018-09-15 03:52] VITALS: PULSE 71
[2018-09-15 04:00] VITALS: PULSE 66
[2018-09-15] MEDS: LEVOFLOXACIN 500 MG TAB PO SCH (05:57)
[2018-09-15 07:29] VITALS: BP 124/76; PULSE 76; RESP 16
[2018-09-15] MEDS: MESALAMINE (EC) 400 MG CAP PO SCH ×2 (08:43→12:13)
[2018-09-15] MEDS: OXCARBAZEPINE 300 MG TAB PO SCH (08:43)
--- NOTE | 2018-09-15 09:19 | CONS ---
Assessment/Plan Assessment/Plan Hospital Course 57 yo M with reported Hx of ICH anxiety and other comorbidities who presents for evaluation of ams... for which neurology is consulted. The clinical picture is concerning for seizure...his first of life... MRI brain is notable for R frontal lobe encephalomalacia... a likely epileptogenic focus. EEG was without ongoing epileptiform activity.. UDS + cocaine P: Cont Trileptal for seizure ppx. Hold Keppra, as it can exacerbate underlying psychiatric comorbidities Ativan IV PRN seizure > 5 min or for cluster Cont other medical management per primary Neurologically cleared for d/c, when medically able Consultation Date/Type/Reason Admit Date/Time Sep 12, 2018 at 17:41 Type of Consult Neurology Reason for Consultation seizures Requesting Provider: ERIC VELÁZQUEZ Date/Time of Note DATE: 09/15/18 TIME: 09:18 24 HR Interval Summary Free Text/Dictation Continues acute care. Exam Vital Signs Vitals Vital Signs Date Temp Pulse Resp B/P (MAP) Pulse Ox O2 O2 Flow FiO2 Time Delivery Rate 09/15/18 97.6 76 16 124/76 99 07:29 (92) 09/14/18 Room Air 15:26 Intake and Output 09/14/18 09/14/18 09/15/18 1515:00 23:00 07:00 IntakeIntake Total 250 ml 1600 ml 800 ml OutputOutput Total 1220 ml 950 ml BalanceBalance 250 ml 380 ml -150 ml Exam PE: Gen Appearance: No Apparent Distress HEENT: Normocephalic Cardiovascular: Regular rate Lungs: Clear bilaterally Abdomen: Soft Extremities: Dry NE: The patient was alert and grossly oriented. Language was normal. Fund of knowledge was normal. Attention span limited. Pupils were equal and reactive to light. There was no afferent pupillary defect. Visual zepeda were normal. Funduscopic examination was limited. Extra-ocular movements were full. Ptosis was absent. There was no nystagmus. Facial sensation was normal. Face was symmetric with normal strength. Hearing was intact. Palate movements were normal. Neck strength was normal. Tongue was swollen, though had a normal speed of movement. Tone was normal. Muscle bulk was normal. I did not see fasciculations. Arms and legs were weak on the L. Vibration sensation was normal. Temperature and pinprick sensation was normal. Rapid alternating movements were normal. There was no dysmetria. There was no intention tremor. Gait was deferred due to bedrest. Arm and leg reflexes were 2+ and symmetric. Adamson's sign was absent. Plantar responses were flexor. TAWANNA PEREA NP Sep 15, 2018 09:18
[2018-09-15] MEDS ORDERED: LEVO500T48 PO (09:49)
[2018-09-15] MEDS ORDERED: OXCA300T41 PO (09:49)
[2018-09-15] MEDS ORDERED: ASA400 PO (09:49)
--- NOTE | 2018-09-15 09:52 | PDOCDIS ---
Discharge Instructions CONDITION [id number] Patient Condition: [id number] Stable FOLLOW UP/APPOINTMENTS Follow-up Plan 1. Please follow-up with your primary care provider within 1 week. You will need to get a repeat of your thyroid blood work as it was showing low TSH. 2. Please continue medication as directed, finish antibiotic, continue oxcarbazepine until a neurologist tells you to stop, 3. please follow-up with your primary care provider in order to get a referral to a urologist as soon as possible. 4. Stop cocaine ERIC VELÁZQUEZ Sep 15, 2018 09:52
--- NOTE | 2018-09-15 09:58 | DS ---
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 Patient was seen by neurology and it was highly likely patient suffered from a seizure and had been suffering from seizures in the past as he had episodes of finding himself on the ground with unknown cause. Patient was also cocaine positive. Patient was counseled extensively on stopping cocaine and mixing with other medications. Patient was also told to stop baclofen as quickly as possible. Patient was started on antiepileptic per neurology and subsequently was monitored. Incidentally on MRI a sinusitis was found and patient was put on appropriate oral antibiotics and will be discharged on an appropriate course of antibiotic as well. Patient will continue home medication and will give a new antibiotic for the next 5 days as well as a prescription for the antiepileptic medication. Patient feels well but due to his chronic deficit, physical therapy and home health physical therapy was offered to the patient however patient stated that he did not want to wait for physical therapist to evaluate him and stated he will be fine at home and refused physical therapy and home health physical therapy evaluation. Patient states he has a wheelchair and a four-point cane at home and ambulates perfectly fine with a special shoe. Patient is alert and oriented and able to make his own decisions and has refused physical therapy evaluation. 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 Chronic left foot weakness Chronic insomnia Syncope, likely secondary to above seizure, resolved Mood disorder Sinusitis Crohn's disease Home Meds Active Scripts Mesalamine (Delzicol) 400 Mg Cap.drtab., 400 MG PO QID for 30 Days Prov:ERIC VELÁZQUEZ 09/15/18 Oxcarbazepine* (Oxcarbazepine*) 300 Mg Tablet, 300 MG PO BID for 30 Days, #60 TAB 1 Refill Prov:ERIC VELÁZQUEZ 09/15/18 Levofloxacin* (Levaquin*) 500 Mg Tablet, 500 MG PO DAILY for 5 Days, #5 TAB Prov:ERIC VELÁZQUEZ 09/15/18 Discontinued Reported Medications Baclofen* (Baclofen*) 10 Mg Tablet, 10 MG PO TID, TAB 09/12/18 [Clonazepam] No Conflict Check 03/29/18 [Baclofen] No Conflict Check 03/29/18 Discontinued Scripts Levetiracetam* (Keppra*) 500 Mg Tablet, 500 MG PO BID, #30 TAB Prov:LAKEISHA ELISE 09/12/18 Follow-up Plan 1. Please follow-up with your primary care provider within 1 week. You will need to get a repeat of your thyroid blood work as it was showing low TSH. 2. Please continue medication as directed, finish antibiotic, continue oxcarbazepine until a neurologist tells you to stop, 3. please follow-up with your primary care provider in order to get a referral to a urologist as soon as possible. 4. Stop cocaine Primary Care Provider Not On Staff Doctor Time spent on discharge: > 30 minutes ERIC VELÁZQUEZ Sep 15, 2018 09:58
[2018-09-15 11:07] VITALS: BP 132/80; PULSE 76; RESP 16
[2018-09-15] MEDS ORDERED: clonAZEPAM 0.5 MG TAB PO ONE (15:00)
[2018-09-15 15:29] VITALS: BP 158/92; PULSE 69; RESP 16
== END 2018-09-15 17:08 | disposition home or self-care (01) | DRG 101 ==
LOC: E/R 10:30 → SUATTDRO 17:32 → 6WM 17:41
PROVIDERS: ADMIT Internal Medicine; ATTEND Internal Medicine
DX: G40.909 Epilepsy, unspecified, not intractable, without status epilepticus (principal); I69.954 Hemiplegia and hemiparesis following unspecified cerebrovascular disease affecting left non-dominant side; K50.90 Crohn's disease, unspecified, without complications; G93.49 Other encephalopathy; G47.00 Insomnia, unspecified; F41.9 Anxiety disorder, unspecified; F51.04 Psychophysiologic insomnia; F39 Unspecified mood [affective] disorder; J32.9 Chronic sinusitis, unspecified; F14.90 Cocaine use, unspecified, uncomplicated; Z99.3 Dependence on wheelchair
CPT/HCPCS: 36415; 70450; 70551; 71045; 80048; 80053; 80061; 80307; 81001; 82550; 82962; 83036; 83605; 83690; 83735; 84100; 84439; 84443; 85025; 85610; 85730; 86140; 87081; 87086; 87400; 92610; 93306; 93880; 95819; 96365; 96367; 96375; J0692; J1953; J2060; J3370; J7030; J7050